=== PATIENT | female | born 1955 | race Caucasian/White ===

== ENCOUNTER → 2018-04-01 | Outpatient (CLI) | payer BC ==
--- NOTE | 2018-04-01 16:57 | XR ---
EXAMINATION TYPE: XR humerus LT DATE OF EXAM: 04/01/2018 COMPARISON: NONE HISTORY: Humerus pain TECHNIQUE: 2 views FINDINGS: There is calcification at the supraspinatus tendon. I see no fracture nor dislocation. [place] w joint appears intact. IMPRESSION: Calcific tendinitis at the shoulder joint. No fracture.
--- NOTE | 2018-04-01 17:03 | XR ---
EXAMINATION TYPE: XR shoulder complete LT DATE OF EXAM: 04/01/2018 COMPARISON: NONE HISTORY: Humerus pain TECHNIQUE: 3 views FINDINGS: There is calcification at the greater tuberosity. I see no fracture nor dislocation. [place] umeral joint is anatomic. IMPRESSION: Calcific tendinitis. No fracture.
== END | disposition home or self-care (01) ==
LOC: RADXRMAIN 16:33
PROVIDERS: ATTEND Physician Assistant Medical
DX: M75.32 Calcific tendinitis of left shoulder (principal); M79.602 Pain in left arm

== ENCOUNTER 2018-05-28 19:32 | Emergency (ER) | payer BC ==
[2018-05-28 21:32] LABS: Basophils % (A) 1 %; Eosinophils # (A) 0.1 k/uL (0-0.7); Eosinophils % (A) 2 %; HCT 42.7 % (34.0-46.0); HGB 14.6 gm/dL (11.4-16.0); Lymphocytes # (A) 1.6 k/uL (1.0-4.8); Lymphocytes % (A) 24 %; MCH 30.5 pg (25.0-35.0); MCHC 34.2 g/dL (31.0-37.0); MCV 89.3 fL (80.0-100.0); Mean Platelet Volume 7.4; Monocytes # (A) 0.5 k/uL (0-1.0); Monocytes % (A) 8 %; Neutrophils # (A) 4.3 k/uL (1.3-7.7); Neutrophils % (A) 64 %; Platelet Count 190 k/uL (150-450); RBC 4.79 m/uL (3.80-5.40); RDW 13.4 % (11.5-15.5); WBC 6.6 k/uL (3.8-10.6)
[2018-05-28 21:40] LABS: ALT 30 U/L (9-52); AST 25 U/L (14-36); Albumin 4.3 g/dL (3.5-5.0); Alkaline Phosphatase 87 U/L (38-126); Anion Gap 6 mmol/L; Blood Urea Nitrogen 26 mg/dL (7-17); Calcium 9.5 mg/dL (8.4-10.2); Carbon Dioxide 29 mmol/L (22-30); Chloride 107 mmol/L (98-107); Glucose 98 mg/dL (74-99); Partial Thromboplastin Time 22.6 sec (22.0-30.0); Potassium 4.5 mmol/L (3.5-5.1); Prothrombin Time 10.3 sec (9.0-12.0); Sodium 142 mmol/L (137-145); Total Bilirubin 0.3 mg/dL (0.2-1.3)
--- NOTE | 2018-05-28 22:09 | ED ---
Extremity Problem HPI - General Chief complaint: Extremity Problem,Nontraumatic Stated complaint: Weakness in legs Time Seen by Provider: 05/28/18 20:19 Source: patient, RN notes reviewed Mode of arrival: wheelchair Limitations: no limitations - History of Present Illness Initial comments: This a 62-year-old female presents emergency Department chief complaint of leg weakness. Patient states that last 56 days she's felt that her left leg been more weak than usual. She denies any trauma denies any back pain. Patient states that just doesn't feel a strong only when she is walking. She states she has full range of motion denies any bowel, bladder incontinence or retention. Denies any saddle anesthesias or lower extremity paresthesias. She denies any discoloration of lower extremity. 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 Patient states she called her surgeon because she is having some her symptoms when she had the surgery and they told her she may need to be evaluated for possible occlusion. Patient states she has no abdominal pain no chest pain or shortness breath. - Related Data Home Medications Medication Instructions Recorded Confirmed ALPRAZolam [Xanax] 1 mg PO TID PRN 05/28/18 05/28/18 Aspirin EC [Ecotrin Low Dose] 81 mg PO DAILY 05/28/18 05/28/18 Metoprolol Tartrate [Lopressor] 50 mg PO BID 05/28/18 05/28/18 Rosuvastatin Calcium [Crestor] 20 mg PO DAILY 05/28/18 05/28/18 Allergies Allergy/AdvReac Type Severity Reaction Status Date / Time aspirin AdvReac Nausea Verified 05/28/18 20:36 Review of Systems ROS Statement: Those systems with pertinent positive or pertinent negative responses have been documented in the HPI. ROS Other: All systems not noted in ROS Statement are negative. Past Medical History Past Medical History: CVA/TIA, Vascular Disorder History of Any Multi-Drug Resistant Organisms: None Reported Additional Past Surgical History / Comment(s): Vascular Surgery, Eye surgery Past Psychological History: No Psychological Hx Reported Smoking Status: Current every day smoker Past Alcohol Use History: None Reported Past Drug Use History: None Reported General Exam Limitations: no limitations General appearance: alert, in no apparent distress Head exam: Present: atraumatic, normocephalic, normal inspection Respiratory exam: Present: normal lung sounds bilaterally. Absent: respiratory distress, wheezes, rales, rhonchi, stridor Cardiovascular Exam: Present: regular rate, normal rhythm, normal heart sounds. Absent: systolic murmur, diastolic murmur, rubs, gallop, clicks GI/Abdominal exam: Present: soft, normal bowel sounds. Absent: distended, tenderness, guarding, rebound, rigid Extremities exam: Present: other (Lower extremities neurovascular intact there is equal color equal warmth bilaterally, patient has normal straight leg raise and equal strength 5/5) Neurological exam: Present: alert, oriented X3, CN II-XII intact, reflexes normal. Absent: motor sensory deficit Skin exam: Present: warm, dry, intact, normal color. Absent: rash Course Vital Signs 05/28/18 05/28/18 19:49 22:09 Temperature 98.3 F 97.6 F Pulse Rate 86 78 Respiratory 18 16 Rate Blood Pressure 158/86 148/76 O2 Sat by Pulse 97 98 Oximetry Medical Decision Making - Medical Decision Making 62-year-old female presented for left leg weakness. Patient states that just seems to be more weak over the last 5-6 days. Patient had symptoms like this in the past when she had occlusion over aorta and her abdomen. Patient called her surgeon who advised him to be evaluated for occlusion. Patient states that she only notices it when she walks. She denies any upper extremity weakness, headache or dizziness. Denies chest pain or shortness of breath. She states she has no pain to her left leg, noted swelling or discoloration. Patient had CT anterior which showed patent grafts with no occlusion. - Lab Data Result diagrams: 05/28/18 21:15 05/28/18 21:15 Lab Results 05/28/18 05/28/18 05/28/18 Range/Units 21:15 21:15 21:15 WBC 6.6 (3.8-10.6) k/uL RBC 4.79 (3.80-5.40) m/uL Hgb 14.6 (11.4-16.0) gm/dL Hct 42.7 (34.0-46.0) % MCV 89.3 (80.0-100.0) fL MCH 30.5 (25.0-35.0) pg MCHC 34.2 (31.0-37.0) g/dL RDW 13.4 (11.5-15.5) % Plt Count 190 (150-450) k/uL Neutrophils % 64 % Lymphocytes % 24 % Monocytes % 8 % Eosinophils % 2 % Basophils % 1 % Neutrophils # 4.3 (1.3-7.7) k/uL Lymphocytes # 1.6 (1.0-4.8) k/uL Monocytes # 0.5 (0-1.0) k/uL Eosinophils # 0.1 (0-0.7) k/uL Basophils # 0.0 (0-0.2) k/uL PT 10.3 (9.0-12.0) sec INR 1.0 (<1.2) APTT 22.6 (22.0-30.0) sec Sodium 142 (137-145) mmol/L Potassium 4.5 (3.5-5.1) mmol/L Chloride 107 (98-107) mmol/L Carbon Dioxide 29 (22-30) mmol/L Anion Gap 6 mmol/L BUN 26 H (7-17) mg/dL Creatinine 0.60 (0.52-1.04) mg/dL Est GFR (CKD-EPI)AfAm >90 (>60 ml/min/1.73 sqM) Est GFR (CKD-EPI)NonAf >90 (>60 ml/min/1.73 sqM) Glucose 98 (74-99) mg/dL Calcium 9.5 (8.4-10.2) mg/dL Total Bilirubin 0.3 (0.2-1.3) mg/dL AST 25 (14-36) U/L ALT 30 (9-52) U/L Alkaline Phosphatase 87 (38-126) U/L Total Protein 7.0 (6.3-8.2) g/dL Albumin 4.3 (3.5-5.0) g/dL Disposition Clinical Impression: Left leg weakness Disposition: HOME SELF-CARE Condition: Stable Instructions: Lumbar Radiculopathy (ED) Additional Instructions: Please return to the Emergency Department if symptoms worsen or any other concerns. Is patient prescribed a controlled substance at d/c from ED?: No Referrals: Ashleigh Figueroa III, MD [Primary Care Provider] - 1-2 days
[2018-05-28 22:10] VITALS: BP 148/76; PULSE 78; RESP 16; TEMP 97.6
--- NOTE | 2018-05-28 22:15 | CT ---
EXAMINATION TYPE: CT angio abd aorta w/Runoff DATE OF EXAM: 05/28/2018 HISTORY: Left leg weakness, hx of aortic graft CT DLP: 966.1mGycm Automated Exposure Control for Dose Reduction was Utilized. CONTRAST: CT scan of the abdomen and pelvis is performed with IV Contrast, patient injected with 125 mL of Isov ue 370. COMPARISON: 05/02/2014 FINDINGS: There are 3-D post processed images. There is arterial flow in the abdominal aorta which has normal size. There is aortoiliac bypass graft extending to the femoral arteries. There is wide patency of the graft. There is no flow in the nativ e common iliac arteries. There is arterial flow in the femoral arteries and profunda femoris arteries without evidence of sten osis. There is bilateral arterial flow in the popliteal arteries and tibial arteries. There is patenc y of the tibial artery trifurcation. Unfortunately contrast is not seen at the ankles. This is probab ly due to the timing. There is arterial flow in the anterior and posterior tibial arteries and the pe roneal arteries bilaterally. There is bilateral internal iliac artery flow. This could be filling ret rograde from the femoral arteries. Liver spleen pancreas appear normal. There are calcified gallstones. Kidneys show no hydronephrosis. There is no retroperitoneal adenopathy. There is no evidence of aortic aneurysm or dissection. There is patency of the celiac artery and the superior mesenteric artery. There is patency of the candice al arteries. IMPRESSION: Aortoiliac bypass graft is widely patent. No evidence of hemodynamically significant stenosis in the lower limbs. No complicating process seen. 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 There is atheromatous abdominal aorta with lumen narrowing of the mid abdominal aorta to 11 mm. This is distal to the renal arteries.
== END 2018-05-28 23:21 | disposition home or self-care (01) ==
LOC: EC 19:32
DX: R53.1 Weakness (principal); I73.9 Peripheral vascular disease, unspecified; F17.200 Nicotine dependence, unspecified, uncomplicated; Z86.73 Personal history of transient ischemic attack (TIA), and cerebral infarction without residual deficits; Z88.6 Allergy status to analgesic agent; Z79.82 Long term (current) use of aspirin; Z79.899 Other long term (current) drug therapy
CPT/HCPCS: 36415; 75635; 80053; 85025; 85610; 85730; 99285